=== PATIENT | female | born 1995 | race Native Hawaiian/Other Pacific Islander ===

== ENCOUNTER 2017-10-13 09:04 | Outpatient (CLI) | payer OTHER | END 2017-10-13 21:45 | disposition home or self-care (01) | LOC: RAD 09:04 | DX: M25.511 Pain in right shoulder (principal); G89.29 Other chronic pain; R06.02 Shortness of breath | CPT/HCPCS: 93005 ==

== ENCOUNTER 2017-10-15 08:12 | Outpatient (CLI) | payer OTHER | END 2017-10-15 19:55 | disposition home or self-care (01) | LOC: RESP 08:12 | DX: R94.31 Abnormal electrocardiogram [ECG] [EKG] (principal) | CPT/HCPCS: 93306 ==